=== PATIENT | male | born 1970 | race Caucasian/White ===

== ENCOUNTER 2017-03-11 10:11 | Emergency (ER) | payer BC ==
[~2017-03-11] VITALS: Ht 165.1 cm; Wt 77.1 kg
[2017-03-11 10:18] VITALS: BP 143/80
--- NOTE | 2017-03-11 10:28 | NUR ---
Patient taken to XRAY from ED lobby via wheelchair by tech.
--- NOTE | 2017-03-11 10:36 | NUR ---
Patient returned to ED lobby from XRAY.
--- NOTE | 2017-03-11 13:33 | NUR ---
Patient transferred to bed 7 via wheelchair by tech. RN evaluating patient at bedside.
--- NOTE | 2017-03-11 13:41 | NUR ---
PT PRESENTS TO ER ON CRUTCHES W/C/O LEFT ANKLE PAIN SUSTAINED AFTER PLAYING SPORTS YESTERDAY. PT DENIES ANY MEDICAL HX.PT STATES PAIN IS AGGARVATED IF HE HYPER EXTEND AND HIS FOOT W/PAIN SCALE OF 10/10;NO PAIN AT REST .LT FOOT HAS HEMATOMA AND MILD SWELLING NOTED; BRUISE ON MIDDLE FOOT FINGER;DENIES N/V/D; SKIN IS PINK/WARM/DRY; AAOX4 WITH EVEN AND STEADY GAIT; LUNGS CLEAR BL; HR EVEN AND REGULAR; PT DENIES ANY FEVER, CP, SOB, OR COUGH AT THIS TIME; PATIENT POSITIONED FOR COMFORT; HOB ELEVATED; BEDRAILS UP X2; BED DOWN.
--- NOTE | 2017-03-11 14:25 | NUR ---
ER AT BEDSIDE
--- NOTE | 2017-03-11 14:59 | NUR ---
Patient transferred to 2 for further care.
--- NOTE | 2017-03-11 15:26 | NUR ---
Patient discharged with v/s stable. Written and verbal after care instructions given and explained.Patient alert, oriented and verbalized understanding of instructions. Ambulatory with steady gait. All questions addressed prior to discharge. ID band removed. Patient advised to follow up with PMD. Rx of MOTRIN given. Patient educated on indication of medication including possible reaction and side effects. Opportunity to ask questions provided and answered.
[2017-03-11 15:27] VITALS: BP 138/80
== END 2017-03-11 15:26 | disposition home or self-care (01) ==
LOC: MED 10:11
DX: S86.012A Strain of left Achilles tendon, initial encounter (principal); Z88.0 Allergy status to penicillin; W19.XXXA Unspecified fall, initial encounter; Y93.6A Activity, physical games generally associated with school recess, summer camp and children; Y92.89 Other specified places as the place of occurrence of the external cause; Y99.8 Other external cause status